=== PATIENT | male | born 1990 | race African-American/Black ===

== ENCOUNTER 2017-05-04 15:07 | Emergency (ER) | payer OTHER | END 2017-05-04 16:46 | disposition home or self-care (01) | LOC: ER 15:07 | DX: S30.0XXA Contusion of lower back and pelvis, initial encounter (principal); W00.0XXA Fall on same level due to ice and snow, initial encounter; Y93.89 Activity, other specified; Y92.89 Other specified places as the place of occurrence of the external cause; Y99.8 Other external cause status | CPT/HCPCS: 72100; 99284 ==